=== PATIENT | female | born 1985 | race Caucasian/White ===

== ENCOUNTER 2017-06-27 09:47 | Emergency (ER) | payer MEDICAID ==
[~2017-06-27] VITALS: Ht 167.6 cm; Wt 92.8 kg
[2017-06-27 09:51] VITALS: BP 128/63
[2017-06-27 11:15] LABS: CULTURE INDICATED? YES; MICROSCOPIC INDICATED
== END 2017-06-27 11:42 | disposition home or self-care (01) ==
LOC: ED 11:36
DX: N30.90 Cystitis, unspecified without hematuria (principal); Z90.710 Acquired absence of both cervix and uterus
CPT/HCPCS: 81001; 87086; 99284